=== PATIENT | female | born 1985 | race African-American/Black ===

== ENCOUNTER 2016-11-20 10:02 | Emergency (ER) | payer BC ==
[~2016-11-20] VITALS: Ht 172.7 cm; Wt 72.6 kg
[2016-11-20 10:07] VITALS: BP 123/68
--- NOTE | 2016-11-20 10:07 | NUR ---
Patient ambulated to bed 07.
--- NOTE | 2016-11-20 10:16 | NUR ---
31/F c/o generalized abdominal pain x 3 weeks. Pt was seen at urgent care prior to arrival and sent here for further evaluation. Pt states "It started off as bloating but then it just started getting worse." Pt describes pain as sharp, "comes and goes throughout the day," non radiating, 03/25. C/o nausea, denies vomiting. Pt states "I have a high tolerance for vomiting." No vomiting noted. Also c/o chills, denies fever. AOX4, clear speech. Skin warm and dry, normal in color for ethnicity. Afebrile. Abdomen soft, active bowel sounds x4 quadrants. Denies s/s of UTI. VSS. Placed in a gown, placed in position of comfort. Offered warm blanket. All needs addressed. Friend at bedside. Awaiting ERMD.
--- NOTE | 2016-11-20 10:21 | NUR ---
Dr. Zabala evaluating patient at bedside.
[2016-11-20] MEDS ORDERED: LIDOCAINE VISCOUS 2% 20 ML UDC PO ONE (10:30)
[2016-11-20] MEDS ORDERED: ALUMINUM HYD/MAG/SIMETHICONE 30 ML UDC PO ONE (10:30)
[2016-11-20] MEDS ORDERED: FAMOTIDINE 20 MG TAB PO ONE (10:30)
[2016-11-20 10:53] LABS: BASOPHILS # (AUTO) 0.1 K/uL (0.00-0.22); BASOPHILS % (AUTO) 1.4 % (0.0-2.0); EOSINOPHILS # (AUTO) 0.1 K/uL (0-0.4); EOSINOPHILS % (AUTO) 1.3 % (0.0-4.0); HEMATOCRIT 33.3 % (36-48); HEMOGLOBIN 10.5 g/dL (12.0-16.0); LYMPHOCYTES # (AUTO) 1.5 K/uL (2.5-16.5); MEAN CORPUSCULAR HEMOGLOBIN 23 pg (27-31); MEAN CORPUSCULAR HGB CONC 32 g/dL (33-37); MEAN CORPUSCULAR VOLUME 73 fL (80-94); MONOCYTES # (AUTO) 0.6 K/uL (0.8-1.0); MONOCYTES % (AUTO) 12.9 % (1.7-9.3); NEUTROPHILS # (AUTO) 2.3 K/uL (1.8-7.7); NEUTROPHILS % (AUTO) 51.4 % (42.2-75.2); PLATELET COUNT (AUTO) 339 K/uL (140-450); RED BLOOD CELL COUNT(AUTO) 4.59 MIL/uL (4.20-5.40); WHITE BLOOD COUNT (AUTO) 4.6 K/uL (4.8-10.8)
[2016-11-20 11:15] LABS: POTASSIUM 4.1 mmol/L (3.5-5.1)
--- NOTE | 2016-11-20 11:15 | NUR ---
PATIENT C/O 03/25 PAIN. NO IMPROVEMENT WITH MEDS. DR. ESTRADA MADE AWARE.
[2016-11-20 11:16] LABS: ANION GAP 11.4 (8-16); CARBON DIOXIDE 26.7 mmol/L (21-32); CREATININE 0.8 mg/dL (0.6-1.3)
[2016-11-20 11:17] LABS: ALBUMIN 3.7 g/dL (3.4-5.0); TOTAL PROTEIN, SERUM 8.2 g/dL (6.4-8.2)
--- NOTE | 2016-11-20 11:24 | NUR ---
Dr. Zabala re-evaluating patient at bedside.
[2016-11-20 11:38] VITALS: BP 104/65
--- NOTE | 2016-11-20 11:38 | NUR ---
Patient discharged with v/s stable. Written and verbal after care instructions given and explained. Patient alert, oriented and verbalized understanding of instructions. Ambulatory with steady gait. All questions addressed prior to discharge. ID band removed. Patient advised to follow up with PMD. Rx of ZOFRAN ODT 4MG & PEPCID 40MG TAB given. Patient educated on indication of medication including possible reaction and side effects. Opportunity to ask questions provided and answered.
== END 2016-11-20 11:38 | disposition home or self-care (01) ==
LOC: MED 10:02
DX: K29.70 Gastritis, unspecified, without bleeding (principal); F17.200 Nicotine dependence, unspecified, uncomplicated; Z86.2 Personal history of diseases of the blood and blood-forming organs and certain disorders involving the immune mechanism
CPT/HCPCS: 36415; 80053; 81002; 81025; 83690; 85025; 99284